=== PATIENT | male | born 1980 | race Caucasian/White ===

== ENCOUNTER 2020-08-07 17:49 | Emergency (ER) | payer OTHER ==
--- NOTE | 2020-08-07 18:01 | ED Physician Documentation ---
PD HPI LOWER EXT INJURY - Stated complaint Stated Complaint: LT TOE INJ - Chief complaint Chief Complaint: Ext Problem - History obtained from History obtained from: Patient - History of Present Illness PD HPI LOW EXT INJURY LOCATION: Left, Foot, Toe (great and second) Type of injury: Blunt / blow (he had horse rear and land, stomping on his foot/toes. Pain with walking.) Where injury occurred: Home Timing - onset: How many minutes ago (30), Today Timing - duration: Minutes (30) Timing - details: Abrupt onset, Still present Worsened by: Moving, Palpating, Other (walking) Associated symptoms: Swelling. No: Weakness, Numbness Contributing factors: No: Anticoagulated, Prior ortho surgery Similar symptoms before: Has not had sx before (has had horses stomp on foot, but this hurts dramatically worse than others.) Review of Systems Constitutional: denies: Fever Nose: denies: Rhinorrhea / runny nose, Congestion Throat: denies: Sore throat Respiratory: denies: Cough Neurologic: denies: Focal weakness, Numbness PD PAST MEDICAL HISTORY - Past Medical History Past Medical History: Yes : Kidney stones Psych: Depression, Anxiety Musculoskeletal: None - Past Surgical History Past Surgical History: Yes Ortho: Shoulder arthroplasty - Allergies Allergies/Adverse Reactions: Allergies Allergy/AdvReac Type Severity Reaction Status Date / Time No Known Drug Allergies Allergy Verified 08/07/20 17:54 - Social History Does the pt smoke?: No Smoking Status: Never smoker Does the pt drink ETOH?: No Does the pt have substance abuse?: No - Immunizations Immunizations are current?: Yes - POLST Patient has POLST: No PD ED PE NORMAL - Vitals Vital signs reviewed: Yes - General General: Alert and oriented X 3, No acute distress, Well developed/nourished - Derm Derm: Normal color, Warm and dry - Extremities Extremities: Other (left foot with tenderness over the great and second toe, and the distal foot on medial side. Not tender plantar aspect. NO gross deformity. Normal sensation and cap refill/color in toes. Movement of toes restricted due to pain. Does have some movement so no apparent tendon disruption.) Results - Vitals Vitals: Vital Signs - 24 hr 08/07/20 08/07/20 08/07/20 17:51 17:56 19:24 Temperature 37.2 C 37.2 C 37.2 C Heart Rate 65 65 66 Respiratory 18 18 18 Rate Blood Pressure 131/86 H 131/86 H 130/85 H O2 Saturation 99 99 100 Oxygen O2 Source Room air - Rads (name of study) left foot Radiology: Prelim report reviewed (possible fracture distal 4th toes DIP.), EMP read contemporaneously (he is not tender at the 4th toes at all. ), See rad report PD MEDICAL DECISION MAKING - ED course Complexity details: reviewed results (no fractures in areas that are injured. ), considered differential (xray to eval for fracture. He is hurting too much was nromal walking and accepts offer of crutches and foot support. ), d/w patient Departure - Departure Disposition: 01 Home, Self Care Clinical Impression: Foot contusion Qualifiers: Encounter type: initial encounter Laterality: left Qualified Code(s): S90.32XA - Contusion of left foot, initial encounter Condition: Stable Record reviewed to determine appropriate education?: Yes Instructions: ED Contusion Foot Follow-Up: Fransisco Hong MD [Provider Admit Priv/Credential] - Comments: No fractures identified in your foot. It can still hurt for several days even a week or so with a contusion. Firm soled shoe to reduce flex and motion through the foot and toes. Crutches initially as needed for partial to no weightbearing and progress as tolerated. Anti-inflammatory such as ibuprofen 600 mg 3 times a day. To that add Tylenol every 4-6 hours if needed. Ice elevate and rest your foot often tonight and tomorrow. Recheck if not fully improved over the next week with good tapering improvement during that time. Discharge Date/Time: 08/07/20 19:31
[2020-08-07] MEDS ORDERED: HYDROcod/ACETAM 5/325 MG TABLET PO STA (18:43)
[2020-08-07] MEDS ORDERED: IBUPROFEN 600 MG TABLET PO STA (18:43)
--- NOTE | 2020-08-07 18:46 | XRAY Report ---
PROCEDURE: Foot 3 View LT INDICATIONS: stepped on by horse TECHNIQUE: 3 views of the foot were acquired. COMPARISON: None FINDINGS: Bones: Cortical irregularity involving medial aspect of fourth distal phalangeal base is seen concern ing for age-indeterminate injury, suggest clinical correlation. No other fracture or dislocation is s een.. No suspicious bony lesions. Soft tissues: No tibiotalar joint effusion. Achilles tendon appears normal. IMPRESSION: Age indeterminant injury involving medial aspect of fourth distal phalangeal base, suggest clinical c orrelation. Reviewed by: Rick Thakur MD on 08/07/2020 5:44 PM [email or web address] Approved by: Rick Thakur MD on 08/07/2020 5:44 PM AKDT Station ID: [id number]
[2020-08-07 19:25] VITALS: BP 130/85
== END 2020-08-07 19:31 | disposition home or self-care (01) ==
LOC: ED 17:49
DX: S90.32XA Contusion of left foot, initial encounter (principal); S90.122A Contusion of left lesser toe(s) without damage to nail, initial encounter; W55.19XA Other contact with horse, initial encounter; Y92.009 Unspecified place in unspecified non-institutional (private) residence as the place of occurrence of the external cause
CPT/HCPCS: 73630; 99282; 99283; A9270

== ENCOUNTER 2022-04-02 16:14 | Emergency (ER) | payer OTHER ==
[2022-04-02 16:21] VITALS: BP 132/87
[2022-04-02] MEDS ORDERED: cephALEXin 250 MG CAPSULE PO STA (16:30)
--- NOTE | 2022-04-02 16:31 | ED Physician Documentation ---
PD HPI WOUND RECHECK - Stated complaint Stated Complaint: POST OP BILAT TOE PX - Chief complaint Chief Complaint: Wound - Histroy obtained from History obtained from: Patient - Additional information Additional information: Had both toenails removed February 21 due to recurrent ingrown toenails. He was doing well up until last few days when he started to get drainage and swelling from the nailbeds of initially the right and then both toes with some purulent drainage this morning. No fevers or spreading redness. Review of Systems Constitutional: reports: Reviewed and negative Ears: reports: Reviewed and negative Nose: reports: Reviewed and negative Throat: reports: Reviewed and negative Cardiac: reports: Reviewed and negative Respiratory: reports: Reviewed and negative PD PAST MEDICAL HISTORY - Past Medical History : Kidney stones Psych: Depression, Anxiety Musculoskeletal: None - Past Surgical History Past Surgical History: Yes Ortho: Shoulder arthroplasty - Present Medications Home Medications: Ambulatory Orders Medication Instructions Recorded Confirmed Prazosin [Minipress] 30 mg PO DAILY 04/02/22 04/02/22 Sertraline [Zoloft] 50 mg PO DAILY 04/02/22 04/02/22 cephALEXin [Keflex] 500 mg PO Q6H #28 cap 04/02/22 - Allergies Allergies/Adverse Reactions: Allergies Allergy/AdvReac Type Severity Reaction Status Date / Time No Known Drug Allergies Allergy Verified 04/02/22 16:21 - Social History Does the pt smoke?: No Smoking Status: Never smoker Does the pt drink ETOH?: No Does the pt have substance abuse?: No - Immunizations Immunizations are current?: Yes - POLST Patient has POLST: No PD ED PE NORMAL - Vitals Vital signs reviewed: Yes - General General: Alert and oriented X 3, No acute distress - Extremities Extremities: Other (Both nail beds have a little bit of purulent drainage and cellulitis on them without cellulitis spreading back up the toe. A culture was done from the left toe during exam.) - Neuro Neuro: Alert and oriented X 3, Normal speech Results - Vitals Vitals: Vital Signs - 24 hr 04/02/22 16:15 Temperature 36.3 C L Heart Rate 68 Respiratory 16 Rate Blood Pressure 132/87 H O2 Saturation 98 Oxygen O2 Source Room air Departure - Departure Disposition: 01 Home, Self Care Clinical Impression: Infected nailbed of toe Qualifiers: Laterality: unspecified laterality Qualified Code(s): L03.039 - Cellulitis of unspecified toe Condition: Good Record reviewed to determine appropriate education?: Yes Instructions: ED Infec Skin Cellulitis Prescriptions: cephALEXin [Keflex] 500 mg PO Q6H #28 cap Comments: I sent your prescription to [facility] in [place]. We are performing a wound culture, the results should be done in 48-72 hours. If antibiotic change is necessary we will call you. Return if worse in the meantime, especially if you develop increased pain, fevers, cannot keep down the medication. Otherwise follow-up with your physician in approximately 2-3 days.
== END 2022-04-02 16:43 | disposition home or self-care (01) ==
LOC: ED 16:14
DX: G89.18 Other acute postprocedural pain (principal); L03.032 Cellulitis of left toe; L03.031 Cellulitis of right toe
CPT/HCPCS: 87070; 87181; 87205; 99283; A9270

== ENCOUNTER → 2022-10-21 | Outpatient (CLI) | payer OTHER | END | disposition short-term general hospital (02) | LOC: EMS 03:44 | DX: R10.31 Right lower quadrant pain (principal); M54.50 Low back pain, unspecified; R11.2 Nausea with vomiting, unspecified; R30.9 Painful micturition, unspecified; N20.0 Calculus of kidney; Z98.890 Other specified postprocedural states | CPT/HCPCS: A0425; A0427 ==

== ENCOUNTER 2023-06-16 10:41 | Emergency (ER) | payer OTHER ==
--- NOTE | 2023-06-16 11:08 | ED Physician Documentation ---
PD HPI DYSPNEA - Stated complaint Stated Complaint: N/V/SOA - Chief complaint Chief Complaint: Resp - History obtained from History obtained from: Patient - History of Present Illness Timing - onset: How many hours ago (1), Today Timing - onset during: Light activity (The patient states a paper bag was brought into his office by one of the cleaning workers for the bus. 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 He states there was a strong odor to it and it caused him to feel nauseated and short of breath. No aerosolization of material.) Timing - details: Abrupt onset, Still present Inciting event(s): Exposure (ie smoke) (odorous bag reportedly containing plan- like material. Was taken away and disposed by cowoker. That person did not have any symptoms after carrying it.) Associated symptoms: Other (nausea and vomited. dyspnea.) Similar symptoms before: Has not had sx before Review of Systems Nose: denies: Rhinorrhea / runny nose, Congestion Throat: denies: Sore throat Respiratory: reports: Dyspnea. denies: Cough GI: reports: Nausea, Vomiting. denies: Diarrhea PD PAST MEDICAL HISTORY - Past Medical History Cardiovascular: None Respiratory: None : Kidney stones Psych: Depression, Anxiety Musculoskeletal: None - Past Surgical History Past Surgical History: Yes Ortho: Shoulder arthroplasty - Present Medications Home Medications: Ambulatory Orders Medication Instructions Recorded Confirmed Prazosin [Minipress] 30 mg PO DAILY 04/02/22 06/16/23 Sertraline [Zoloft] 50 mg PO DAILY 04/02/22 06/16/23 Albuterol Sulf [Ventolin Hfa 1 - 2 puffs INH Q4HR PRN #1 each 06/16/23 Inhaler] Ondansetron Odt [Zofran] 4 mg TL Q6H PRN #10 tablet 06/16/23 - Allergies Allergies/Adverse Reactions: Allergies Allergy/AdvReac Type Severity Reaction Status Date / Time No Known Drug Allergies Allergy Verified 06/16/23 11:16 - Social History Does the pt smoke?: No Smoking Status: Never smoker Does the pt drink ETOH?: No Does the pt have substance abuse?: No - Immunizations Immunizations are current?: Yes - POLST Patient has POLST: No PD ED PE NORMAL - Vitals Vital signs reviewed: Yes - General General: Alert and oriented X 3, No acute distress, Well developed/nourished - HEENT HEENT: Pharynx benign - Neck Neck: Supple, no meningeal sign, No adenopathy - Cardiac Cardiac: RRR, No murmur - Respiratory Respiratory: Clear bilaterally - Derm Derm: Normal color, Warm and dry - Neuro Neuro: Alert and oriented X 3, No motor deficit, Normal speech Results - Vitals Vitals: Vital Signs - 24 hr 06/16/23 06/16/23 06/16/23 10:45 11:55 12:24 Temperature 36.5 C 36.6 C Heart Rate 68 68 62 Respiratory 18 14 18 Rate Blood Pressure 132/76 H 121/71 O2 Saturation 97 98 Oxygen O2 Source Room air PD Medical Decision Making - ED course Complexity details: considered differential, d/w patient ED course: The the patient had onset of nausea and vomiting as well as dyspnea after an odor emanated from a bag that had been left on a bus. 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 One of the workers had brought in a bag leftover on a bus. It did "reek of odor" according to the patient. The other worker had noted it being odorous but did not have any symptoms. The patient states there was no aerosolization or powder or such. The smell itself from the close bag caused his symptoms. He called someone else in the department who would be responsible for disposing of it. That person did not have any side effects when taking it away. The patient seems to be sensitive to what ever particular odor it was. This would seem more individual reaction and not a toxic fume per se as the others were not bothered. The onset of symptoms were within a few minutes that it was in his office. It therefore would not sound a prolonged irritation or inflammation or infectious. The patient states the contents were described as plant like material. The patient was given some Zofran for his nausea and albuterol inhaler for his feeling of dyspnea. This did improve his symptoms. I did not feel any further investigation or testing was needed. It was no ingestion that would account for GI toxicity. Departure - Departure Disposition: 01 Home, Self Care Clinical Impression: Dyspnea, Nausea & vomiting, Chemical sensitivity Condition: Stable Record reviewed to determine appropriate education?: Yes Prescriptions: Albuterol Sulf [Ventolin Hfa Inhaler] 1 - 2 puffs INH Q4HR PRN #1 each PRN Reason: Shortness Of Air/Wheezing Ondansetron Odt [Zofran] 4 mg TL Q6H PRN #10 tablet PRN Reason: Nausea / Vomiting Comments: Presume he had a sensitivity/allergy response to the odor in the bag. It does not sound like a generally toxic fume if other people were not having symptoms. So may be more your particular sensitivity/allergen was triggered. At this point I would have you just rest at home as needed for the rest of the day. If you do have lingering symptoms of nausea or trouble breathing, or prescriptions for some ondansetron and an albuterol inhaler to use as needed. Otherwise just rest at home and the symptoms should dissipate. Forms: PCP List, Activity restrictions Discharge Date/Time: 06/16/23 12:24
[2023-06-16] MEDS ORDERED: ONDANSETRON ODT 4 MG TABLET TL STA (11:33)
[2023-06-16] MEDS ORDERED: ALBUTEROL 1 PUFF INH STA (11:33)
[2023-06-16 12:25] VITALS: BP 121/71; O2SAT 98
== END 2023-06-16 12:24 | disposition home or self-care (01) ==
LOC: ED 10:41
DX: R06.09 Other forms of dyspnea (principal); R11.2 Nausea with vomiting, unspecified
CPT/HCPCS: 94640; 99283; Q0162

== ENCOUNTER 2024-05-06 11:19 | Outpatient (CLI) | payer OTHER | END 2024-05-06 23:59 | disposition critical access hospital (66) | LOC: EMS 11:19 | DX: F41.0 Panic disorder [episodic paroxysmal anxiety] (principal); F43.10 Post-traumatic stress disorder, unspecified | CPT/HCPCS: A0425; A0427 ==

== ENCOUNTER 2024-05-06 11:41 | Emergency (ER) | payer OTHER ==
--- NOTE | 2024-05-06 11:54 | ED Physician Documentation ---
History of Present Illness - Stated complaint Stated Complaint: PANIC ATTACK - History obtained from History obtained from: EMS - Additonal information Additional information: 43-year-old gentleman presents by ambulance. He has a history of anxiety disorder. Is having a panic attack. There is no clear trigger. History from EMS is the patient is unable to talk due to severe hyperventilation. On arrival has received 2mg versed IM PD PAST MEDICAL HISTORY - Past Medical History Cardiovascular: None Respiratory: None : Kidney stones HEENT: Chronic hearing loss Psych: Depression, Anxiety Musculoskeletal: None - Past Surgical History Past Surgical History: Yes Ortho: Shoulder arthroplasty - Present Medications Home Medications: Ambulatory Orders Medication Instructions Recorded Confirmed Prazosin [Minipress] 30 mg PO DAILY 04/02/22 05/06/24 Sertraline [Zoloft] 50 mg PO DAILY 04/02/22 05/06/24 HYDROcod/ACETAM 5/325 [[place] 5/325] 1 - 2 tab PO Q6H PRN #10 tablet 11/26/23 05/06/24 Ibuprofen [Motrin] 800 mg PO Q8H PRN #20 tablet 11/26/23 05/06/24 Alprazolam [Xanax] 1 mg PO BID PRN #5 tablet 05/06/24 hydrOXYzine HCL [Hydroxyzine HCl] 25 mg PO Q6H PRN #90 tablet 05/06/24 - Allergies Allergies/Adverse Reactions: Allergies Allergy/AdvReac Type Severity Reaction Status Date / Time No Known Drug Allergies Allergy Verified 11/26/23 13:14 - Social History Does the pt smoke?: No Smoking Status: Never smoker Does the pt drink ETOH?: No Does the pt have substance abuse?: No - Immunizations Immunizations are current?: Yes - POLST Patient has POLST: No PD ED PE NORMAL - Vitals Vital signs reviewed: Yes - General General: Other (Severely panicky and hyperventilating. He is inconsolable.) - Neck Neck: Supple, no meningeal sign - Cardiac Cardiac: RRR, No murmur - Respiratory Respiratory: Clear bilaterally, Other (tachypneic ) - Abdomen Abdomen: Non tender - Derm Derm: Normal color, Warm and dry Results - Vitals Vitals: Vital Signs - 24 hr 05/06/24 05/06/24 05/06/24 11:53 12:01 16:31 Temperature 36.7 C Heart Rate 100 82 68 Respiratory 60 H 10 L 14 Rate Blood Pressure 155/93 H 122/83 H 122/80 O2 Saturation 99 95 98 If not protocol 1 : Oxygen Flow, liters/minute Oxygen O2 Source Nasal cannula - Labs Labs: Laboratory Tests 05/06/24 05/06/24 05/06/24 14:36 14:36 14:40 WBC 7.9 RBC 4.74 Hgb 14.0 Hct 41.6 L MCV 87.8 MCH 29.5 MCHC 33.7 RDW 12.6 Plt Count 172 MPV 9.0 Neut # (Auto) 4.7 Lymph # (Auto) 2.6 Gem # (Auto) 0.5 Eos # (Auto) 0.0 Baso # (Auto) 0.1 Absolute Nucleated RBC 0.00 Nucleated RBC % 0.0 Sodium 139 Potassium 3.4 L Chloride 103 Carbon Dioxide 27 Anion Gap 9.0 BUN 11 Creatinine 1.2 Estimated GFR (MDRD) 66 L Glucose 101 Calcium 9.5 Magnesium 1.9 Total Bilirubin 0.7 AST 16 ALT 13 Alkaline Phosphatase 48 Total Creatine Kinase 114 Total Protein 7.1 Albumin 4.3 Globulin 2.8 Albumin/Globulin Ratio 1.5 Lipase 11 TSH 2.09 Urine Color YELLOW Urine Clarity CLEAR Urine pH 7.5 Ur Specific [place] 1.010 Urine Protein NEGATIVE Urine Glucose (UA) NEGATIVE Urine Ketones TRACE Urine Occult Blood NEGATIVE Urine Nitrite NEGATIVE Urine Bilirubin NEGATIVE Urine Urobilinogen 0.2 (NORMAL) Ur Leukocyte Esterase NEGATIVE Ur Microscopic Review NOT INDICATED Urine Culture Comments NOT INDICATED Nasal Adenovirus (PCR) Nasal B. parapertussis DNA (PCR) Nasal Coronavir 229E PCR Nasal Coronavir HKU1 PCR Nasal Coronavir NL63 PCR Nasal Coronavir OC43 PCR Nasal Enterovir/Rhinovir PCR Nasal Influenza B PCR Nasal Influenza A PCR Nasal Parainfluen 1 PCR Nasal Parainfluen 2 PCR Nasal Parainfluen 3 PCR Nasal Parainfluen 4 PCR Nasal RSV (PCR) Nasal B.pertussis DNA PCR Nasal C.pneumoniae (PCR) Joaquin Human Metapneumo PCR Nasal M.pneumoniae (PCR) Nasal SARS-CoV-2 (PCR) Salicylates < 1.5 Urine Opiates Screen NEGATIVE Ur Buprenorphine Scrn NEGATIVE Ur Oxycodone Screen NEGATIVE Urine Methadone Screen NEGATIVE Acetaminophen < 0.1 Ur Barbiturates Screen NEGATIVE Ur Tricyclics Screen NEGATIVE Ur Phencyclidine Scrn NEGATIVE Ur Amphetamine Screen NEGATIVE U Methamphetamines Scrn NEGATIVE U Benzodiazepines Scrn NEGATIVE Urine Cocaine Screen NEGATIVE U Cannabinoids Screen NEGATIVE Ur Drug Screen Comment CUTOFF CONC BELOW: Ethyl Alcohol < 10.0 05/06/24 14:40 WBC RBC Hgb Hct MCV MCH MCHC RDW Plt Count MPV Neut # (Auto) Lymph # (Auto) Gem # (Auto) Eos # (Auto) Baso # (Auto) Absolute Nucleated RBC Nucleated RBC % Sodium Potassium Chloride Carbon Dioxide Anion Gap BUN Creatinine Estimated GFR (MDRD) Glucose Calcium Magnesium Total Bilirubin AST ALT Alkaline Phosphatase Total Creatine Kinase Total Protein Albumin Globulin Albumin/Globulin Ratio Lipase TSH Urine Color Urine Clarity Urine pH Ur Specific [place] Urine Protein Urine Glucose (UA) Urine Ketones Urine Occult Blood Urine Nitrite Urine Bilirubin Urine Urobilinogen Ur Leukocyte Esterase Ur Microscopic Review Urine Culture Comments Nasal Adenovirus (PCR) NOT DETECTED Nasal B. parapertussis DNA (PCR) NOT DETECTED Nasal Coronavir 229E PCR NOT DETECTED Nasal Coronavir HKU1 PCR NOT DETECTED Nasal Coronavir NL63 PCR NOT DETECTED Nasal Coronavir OC43 PCR NOT DETECTED Nasal Enterovir/Rhinovir PCR NOT DETECTED Nasal Influenza B PCR NOT DETECTED Nasal Influenza A PCR NOT DETECTED Nasal Parainfluen 1 PCR NOT DETECTED Nasal Parainfluen 2 PCR NOT DETECTED Nasal Parainfluen 3 PCR NOT DETECTED Nasal Parainfluen 4 PCR NOT DETECTED Nasal RSV (PCR) NOT DETECTED Nasal B.pertussis DNA PCR NOT DETECTED Nasal C.pneumoniae (PCR) NOT DETECTED Joaquin Human Metapneumo PCR NOT DETECTED Nasal M.pneumoniae (PCR) NOT DETECTED Nasal SARS-CoV-2 (PCR) NOT DETECTED Salicylates Urine Opiates Screen Ur Buprenorphine Scrn Ur Oxycodone Screen Urine Methadone Screen Acetaminophen Ur Barbiturates Screen Ur Tricyclics Screen Ur Phencyclidine Scrn Ur Amphetamine Screen U Methamphetamines Scrn U Benzodiazepines Scrn Urine Cocaine Screen U Cannabinoids Screen Ur Drug Screen Comment Ethyl Alcohol PD Medical Decision Making - ED course Complexity details: reviewed results (CBC, CMP, urinalysis, and toxicology screening were all normal/negative.) ED course: 43-year-old gentleman send presents with severe panic attack. History of same but this is the worst he is ever had. I examined him after arrival but shortly after that the advocacy director gave 1 mg of Versed IV after which the patient was much better. I had ordered a dose of Ativan but ended up not being given because the Versed was effective enough. Subsequently the Versed wore off and he was feeling panicky again. We trialed some hydroxyzine but before can take effect he became much more panicky but did resolve after 1 mg of Ativan. Given the severity of his symptoms patient was agreeable to a telepsychiatric visit which was done and reviewed. Recommendations followed and passed along to the patient. Departure - Departure Disposition: 01 Home, Self Care Clinical Impression: Anxiety Condition: Good Record reviewed to determine appropriate education?: Yes Instructions: ED Panic Attack Prescriptions: hydrOXYzine HCL [Hydroxyzine HCl] 25 mg PO Q6H PRN #90 tablet PRN Reason: Anxiety Alprazolam [Xanax] 1 mg PO BID PRN #5 tablet PRN Reason: severe anxiety Comments: I sent your prescriptions electronically to the [facility] in [place]. Today you were seen for severe panic attack, you are also seen by our telepsychiatric team. She has recommended that you follow-up with your team at the [facility] with consideration for increasing the Zoloft to 150 mg. In the meantime she had asked me to prescribe Xanax and hydroxyzine. The Xanax is a little more powerful but probably has more side effects so if you are not severely panicky I would recommend the hydroxyzine, but then you can use as a Xanax if you are feeling really bad. Do not drink or drive with either of these medications. Forms: PCP List Discharge Date/Time: 05/06/24 16:31
[2024-05-06] MEDS: LORazepam 2 MG/ML VIAL IVP STA ×2 (12:00→14:05)
[2024-05-06] MEDS: hydrOXYzine PAMOATE 25 MG CAPSULE PO STA (13:13)
[2024-05-06 14:41] LABS: BASOPHILS # (AUTO) 0.1 10^3/uL (0.0-0.1); BASOPHILS % (AUTO) 0.6 %; EOSINOPHILS % (AUTO) 0.1 %; HCT - HEMATOCRIT 41.6 % (42.0-52.0); LYMPHOCYTES # (AUTO) 2.6 10^3/uL (1.5-3.5); LYMPHOCYTES % (AUTO) 32.7 %; MEAN CORPUSCULAR HEMOGLOBIN 29.5 pg (27.0-31.0); MEAN CORPUSCULAR HGB CONC 33.7 g/dL (32.0-36.0); MEAN CORPUSCULAR VOLUME 87.8 fL (80.0-94.0); MONOCYTES # (AUTO) 0.5 10^3/uL (0.0-1.0); MONOCYTES % (AUTO) 6.3 %; NEUTROPHILS # (AUTO) 4.7 10^3/uL (1.5-6.6); PLT - PLATELET COUNT 172 10^3/uL (130-450); RED BLOOD COUNT 4.74 10^6/uL (4.70-6.10); RED CELL DISTRIBUTION WIDTH 12.6 % (12.0-15.0); WHITE BLOOD COUNT 7.9 x10^3/uL (4.8-10.8)
[2024-05-06 14:57] LABS: ALBUMIN 4.3 g/dL (3.2-5.5); ALBUMIN/GLOBULIN RATIO 1.5 (1.0-2.2); ALKALINE PHOSPHATASE 48 IU/L (42-121); ALT ALANINE AMINOTRANSFERASE 13 IU/L (10-60); AST ASPARTATE AMINOTRANSFERASE 16 IU/L (10-42); BILIRUBIN,TOTAL 0.7 mg/dL (0.2-1.0); BUN - BLOOD UREA NITROGEN 11 mg/dL (6-20); CALCIUM 9.5 mg/dL (8.5-10.3); CARBON DIOXIDE - CO2 27 mmol/L (21-32); CHLORIDE 103 mmol/L (101-111); CK- CREATINE KINASE 114 IU/L (30-223); CREATININE 1.2 mg/dL (0.6-1.3); ETOH - ETHANOL < 10.0 mg/dL; GFR - MDRD 66 (>89); GLUCOSE 101 mg/dL (74-104); LIPASE 11 U/L (11-82); MAGNESIUM 1.9 mg/dL (1.7-2.3); POTASSIUM 3.4 mmol/L (3.5-4.5); SODIUM 139 mmol/L (135-145); TOTAL PROTEIN 7.1 g/dL (6.4-8.9)
--- NOTE | 2024-05-06 14:57 | TELEPSYCH PHYS NOTE ---
[facility] Tele[facility] Consult Consult Date: 05/06/24 Name of Referring Provider:: NITIN ATWOOD M.D. Reason for Consult: Panic attack - Suicide Risk Sreening (ASQ Tool) In the past few weeks, have you wished you were ?: No In the past few weeks, have you felt that you or your family would be better off if you were ?: No In the past week, have you been having thoughts about killing yourself?: No Have you ever tried to kill yourself?: Yes - Assessment Language: Azeri Redrawer Required: No Cultural, Buddhist or Spiritual Preferences: "Well yeah I am a Worship." Notes: See ED MD note Chief Complaint: Patient states, "I got PTSD and anxiety whatever and over the last few weeks things ave been extremely stressful for me at work so I have been struggling with maintaining. I am on Prazosin and Sertraline and that seems to do a really good job normally." History of Present Illness: Patient says that he was brought in for a panic attack. Patient reports a history of this and he says that he has been under a lot of stress at work. he could feel the anxiety symtpoms building. Last night he was having a lot of nightmares which the Prazosin usually helps but this morning he woke up feeling "fight or flight." He had been working to regulate this weekend but after a shower today, trying to calm himself, he went to make a healthy drink for himself and he noticed that the shaking began and he walked over to his daughter's room and, "was trying to tell her I was going to need some help and then I seized up and started crying, everything seizes up, like last time. I could not get enough oxygen and it kept getting worse and worse. He thinks that he passed out in the ambulance." He will feel it in his chest and it will radiate out. "It is just very intense. I can't get that realxation to happen. I was not able to get it back down to a manageable place and now I got drugs on me and the are probably helping me out. He had been doing well for a couple of years and so he went down on the Sertraline dose and then had to increase it because of work stress. He made this increase a little over 2 weeks ago, back to the full tablet. He works with the [employer] and was part of a study for PTSD. He used to wake up all the time at night with nightmares. He takes 1 of his Prazosin in the am and 3 tabs. He has a tendency to "freeze" at work when the PTSD is bad. 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 Recently they fired his boss and he worries that people then won't like him since his boss hired him. "EVerything that took place I had nothing to do with but it is hard being targeted." If 10 is the worst, he would rate his depression at a 3-4/10 "I am so focused on the contant anxiety pain that it is hard to know how much is depression. I don't want to do anything. I am trying to use exercise and manage it." He will make himself go for a run and this does help. He rates his anxiety at 8-10/10 "Holding steady at 8. and it is continious and any reminde rof anything it is like a jolt. My fight of light or freeze turns into fight." He is really good about remembering to take his medications. His is away on vacation and this is also hard. "I don't want to rain on her fun too so that ley snot help." He has been aving nightmares again and struggling to stay asleep, waking up yelling. "This last week I have woken up at 1 am and I go to work at 7 am. I am struggling to go to sleep and woke up at 1 because I had a slight night terror and could not go back to sleep. Most of the days of the week I did have a substantial nightmare waking me up." He has a sleep maile showing how his HR is elevated throughout the night. He also is not eating well over the last couple of days. In the last year he lost 20 lbs and he did lose this weight intentionally for his health. Today he has not yet had anything to eat. Patient denies any AVH. "Other than flashbacks." He is getting flashbacks "almost daily, for these highly chharged incidences." "I have come close to killing myself but that was a number of years ago." Suicide Ideation - Homicide Ideation - Self Harm: SI- Denies HI-Denies Self-injury- None Psychiatric History - Treatment History: Dx- PTSD and depression Med hx- slowly increased his medications over the last few years and they have been working well for him. Zoloft increased to one full pill 2 weeks ago. It has helped some, he thinks "It stops me from getting the shakes." [facility] at [facility] but has been in the past. He does follow psychiatry there. IP- Denies Community Resources Accessed: See OP Family Psych History/ History of suicide: Bio mom- BPD and depression Fathers side dementia Nutritional Status: Decrease in food intake and/or appetite - Medication & Allergies Home Medications: Ambulatory Orders Medication Instructions Recorded Confirmed Prazosin [Minipress] 30 mg PO DAILY 04/02/22 05/06/24 Sertraline [Zoloft] 50 mg PO DAILY 04/02/22 05/06/24 HYDROcod/ACETAM 5/325 [[place] 5/325] 1 - 2 tab PO Q6H PRN #10 tablet 11/26/23 05/06/24 Ibuprofen [Motrin] 800 mg PO Q8H PRN #20 tablet 11/26/23 05/06/24 Allergies/Adverse Reactions: Allergies Allergy/AdvReac Type Severity Reaction Status Date / Time No Known Drug Allergies Allergy Verified 11/26/23 13:14 - Drug & Alcohol History Does patient have Drug/ETOH history or addictive behavior?: No Use: Uses substance without health or social issues: NONE, Alcohol Use Issues: uncomplicated Abuse: Recurrent use of substance despite neg consequences: NONE Dependence: Experiences withdrawal or developed tolerances: NONE - Trauma Does the patient have a history of trauma, abuse, neglect or explotation?: Yes History of trauma, abuse, neglect, or exploitation (Notes): "I did not believe I had PTSD. I was never sohhot at or in combat. I was in extreme stress induced environments for extended periods of time." Pressure is what he feels caused the PTSD. A lot of guilt if he felt he did something wrong. This went on for a "number of years." - Personal Information Does the patient have a history or present tendencies for violence?: None History or present tendencies for violence (Notes): None Services History: [id number] to 2010 Does patient have any Legal Charges or Investigations?: No Legal Charges or Investigations (Notes): Denies Environment & Living Situation - Social, Peer-Group (Note): At home Environment & Living Situation - Social, Peer-Group (Notes): Lives with his and 3 kids 20 19 and 15 years old. Marital Status - Family Circumstances: Second marriage Stressors - Financial Concerns: WORK, boss fired recently Sold his horses due to knee issues and the hores were like therapy for him, "One of my detox's. 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 I have not had first hand experience other than what he describes to me tension and anxiety and seizing up and not being able to regulate himself." - Medical History Psychiatric: reports: Depression, Anxiety Eyes, Ears, Nose, Throat: reports: Chronic hearing loss Cardiovascular: reports: None Respiratory: reports: None Urinary: reports: Kidney stones Musculoskeletal: reports: None Skin: reports: None - Surgical History Orthopedic: reports: Shoulder arthroplasty Childhood History: "I would say it was fairly normal. My parents were both [employer]. They ended up getting a divorce when I was around 6 or 7." Father got custody and got out of the [employer] and he would see his mother only in the gomez and he has a "strained relationship with her. Never truly abuse." - Mental Status Exam Appearance and Attire: In his own clothing and laying in bed. Attitude and Behavior: Calm and cooperative Speech: Coherent and appropriate in rate and volume Affect and Mood: Mood is depressed and affect is congruent Association and Thought Process: Logical and linear Thought Content: No obsessions or delusions noted Perception: Denies any AVH Sensorium, memory and orientation: Alert and oriented x 4 Intellectual - Cognitive functioning: No deficits noted Insight and Judgement: Insight is good and judgement is good Emotional and Behavioral Functioning: Using multiple skills to manage but still struggling Ability to Self-Care: Good overall - Personal Goals Short-term Goals: "To be able to go back to work and being able to regualte even if this stuff isn't going away. I like work." Long-term Goals: "Put out resumes because I don't know if it is a good ft right now." - Risk/Protective Factors Risk Factors: Trigger events leading to humiliation, shame and/or despair Protective Factors / Internal: Ability to cope with stress, Frustration tolerance, Buddhist beliefs, Fear of or the actual act of killing self, Identifies reasons for living Protective Factors / External: Cultural, spiritual and/or moral attitudes against suicide, Responsibility to children, Beloved pets, Supportive social network of family or friends, Positive therapeutic relationships, Engaged in work or school - Plan Impression/Risk Assessment: Patient came in with a panic attack. He has a history of these and work has been increasingly stressful which has reduced his sleep and his appetite as well as increased his baseline anxiety level. He did increase the Zoloft about 2 weeks ago and does feel that it already has helped some, with the thought that it should continue to help. Patient has OP providers who he works with at the [facility]. He has a very supportive family and many coping skills he has built and practiced over the years. He denies any SI, HI or AVH. Treatment - Therapy Recommendations: Outpatient treatment with current providers at the [facility] Pharmacological Recommendations: Provide him with #5 1 mg Xanax pills to help manage any further actual panic (he has no substance abuse Hx and has had no panic attack sin many years so #5 is likely to last a long time and also provide a sense of control if the panic arises again. Provide Hydroxyzine 25 mg 1-2 PO twice daily as needed for anxiety (baseline ) until Zoloft increase kicks in #90 He will continue his Prazosin and Zoloft If still having high level anxiety in another week, consider increasing Zoloft to 150 mg (for [facility]) - Time Spent & Provider Location Telepsych consultation conducted via videoconferencing: Yes List names and roles of persons who participated in consult: JAMAR Knowles Telepsych Provider Location: [facility] Time Spent (Minutes): 65
[2024-05-06 15:01] LABS: BILIRUBIN,URINE NEGATIVE (NEGATIVE); GLUCOSE, URINE (UA) NEGATIVE (NEGATIVE); KETONES,URINE (UA) TRACE mg/dL (NEGATIVE); LEUKOCYTE ESTERASE, URINE NEGATIVE (NEGATIVE); NITRITE,URINE NEGATIVE (NEGATIVE); OCCULT BLOOD,URINE NEGATIVE (NEGATIVE); PH,URINE 7.5 PH (5.0-7.5); PROTEIN,URINE NEGATIVE (NEGATIVE); UROBILINOGEN,URINE 0.2 (NORMAL) E.U./dL (NORMAL)
[2024-05-06 15:02] LABS: ACETAMINOPHEN < 0.1 ug/mL; SALICYLATE < 1.5 mg/dL
[2024-05-06 15:02] LABS: CLARITY,URINE CLEAR (CLEAR)
[2024-05-06 15:10] LABS: THYROID STIMULATING HORMONE 2.09 uIU/mL (0.34-5.60)
[2024-05-06 15:11] LABS: AMPHETAMINE SCREEN,URINE NEGATIVE (NEGATIVE); BARBITURATE SCREEN,UR NEGATIVE (NEGATIVE); BENZODIAZEPINES SCREEN, URINE NEGATIVE (NEGATIVE); BUPRENORPHINE SCREEN, URINE NEGATIVE (NEGATIVE); COCAINE SCREEN URINE NEGATIVE (NEGATIVE); METHADONE SCREEN, URINE NEGATIVE (NEGATIVE); METHAMPHETAMINES SCREEN, URINE NEGATIVE (NEGATIVE); OPIATE SCREEN, URINE NEGATIVE (NEGATIVE); OXYCODONE SCREEN, URINE NEGATIVE (NEGATIVE); THC CANNABINOID SCREEN, URINE NEGATIVE (NEGATIVE); TRICYCLIC ANTIDEPRESSANT,URINE NEGATIVE (NEGATIVE)
[2024-05-06 15:58] LABS: B. PARAPERTUSSIS- RESP PCR PAN NOT DETECTED; B. PERTUSSIS- RESP PCR PANEL NOT DETECTED; C. PNEUMONIAE- RESP PCR PANEL NOT DETECTED; CORONAVIRUS 229E-RESP PCR NOT DETECTED; CORONAVIRUS HKU1-RESP PCR NOT DETECTED; CORONAVIRUS NL63-RESP PCR NOT DETECTED; CORONAVIRUS OC43-RESP PCR NOT DETECTED; HUMAN METAPNEUMOVIRUS NOT DETECTED; INFLUENZA A- RESP PCR PANEL NOT DETECTED; INFLUENZA B - RESP PCR PANEL NOT DETECTED; M. PNEUMONIAE- RESP PCR PANEL NOT DETECTED; PARAINFLUENZA VIRUS 1 NOT DETECTED; PARAINFLUENZA VIRUS 2 NOT DETECTED; PARAINFLUENZA VIRUS 3 NOT DETECTED; PARAINFLUENZA VIRUS 4 NOT DETECTED; RHINOVIRUS/ENTEROVIRUS NOT DETECTED; RSV- RESP PCR PANEL NOT DETECTED; SARS-CoV-2 -RESP PCR PANEL NOT DETECTED
[2024-05-06 16:40] VITALS: BP 122/80; O2SAT 98
== END 2024-05-06 16:31 | disposition home or self-care (01) ==
LOC: EDUNIT# → ED 11:41
DX: F41.0 Panic disorder [episodic paroxysmal anxiety] (principal); Z87.442 Personal history of urinary calculi; Z79.899 Other long term (current) drug therapy
CPT/HCPCS: 36415; 80053; 80143; 80179; 80306; 81003; 82077; 82550; 83690; 83735; 84443; 85025; 87633; 90834; 96374; 99283; 99284; A9270; J2060; Q3014; 81001; 87086